=== PATIENT | female | born 1955 | race Caucasian/White ===

== ENCOUNTER 2020-09-19 10:33 | Emergency (ER) | payer OTHER ==
[~2020-09-19] VITALS: Ht 154.9 cm; Wt 49.0 kg
[2020-09-19 11:12] VITALS: Ht 154.9 cm; Wt 49.0 kg
[2020-09-19 12:04] LABS: BASOPHIL % 0.3 % (0-2); RED CELL DISTRIBUTION WIDTH 12.7 % (11.5-14.5)
[2020-09-19 12:05] LABS: PLATELET COUNT 418 x10^3mcL (130-400)
[2020-09-19 12:24] LABS: ALBUMIN 3.4 g/dL (3.4-5.0); ALKALINE PHOSPHATASE 84 U/L (46-116); ALT/SGPT 18 U/L (14-59); AST/SGOT 22 U/L (15-37); BILIRUBIN DIRECT 0.09 mg/dL (0.0-0.2); BILIRUBIN TOTAL 0.4 mg/dL (0.20-1.00); CALCIUM 8.9 mg/dL (8.5-10.1); CARBON DIOXIDE 23.5 mmol/L (21-32); CHLORIDE SERUM 101 mmol/L (98-107); CREATININE SERUM 0.6 mg/dL (0.6-1.0); GFR1 > 60 mL/min; LIPASE 57 IU/L (73-393); POTASSIUM SERUM 3.8 mmol/L (3.5-5.1); SODIUM SERUM 139 mmol/L (136-145); TOTAL PROTEIN, SERUM 7.3 g/dL (6.4-8.2)
[2020-09-19 12:26] LABS: GLUCOSE SERUM 54 mg/dL (74-106)
[2020-09-19 12:28] LABS: UA SPECIFIC GRAVITY >=1.030 (1.005-1.035); microscopic required? YES; urine erythrocyte 1+ (NEGATIVE)
[2020-09-19 14:09] VITALS: BP 104/72
== END 2020-09-19 13:40 | disposition home or self-care (01) ==
LOC: ED 10:33
PROVIDERS: Emergency Medicine
DX: R10.817 Generalized abdominal tenderness (principal); R50.9 Fever, unspecified; R19.7 Diarrhea, unspecified; R63.0 Anorexia; Z20.828 Contact with and (suspected) exposure to other viral communicable diseases; Z88.1 Allergy status to other antibiotic agents; Z88.2 Allergy status to sulfonamides; Z98.890 Other specified postprocedural states
CPT/HCPCS: 82962; Q9967; U0003